=== PATIENT | female | born 1945 | race Caucasian/White ===

== ENCOUNTER → 2016-11-14 | Outpatient (CLI) | payer MEDICARE, OTHER ==
[2016-11-14 13:39] LABS: HEMOGLOBIN 12.4 gm/dl (12.3-15.3); RED BLOOD COUNT 3.97 M/UL (4.00-5.10); WHITE BLOOD COUNT 5.2 K/UL (4.5-11.0)
== END ==
LOC: LAB 10:05
PROVIDERS: Dermatology
DX: D64.9 Anemia, unspecified (principal); F41.1 Generalized anxiety disorder; R53.82 Chronic fatigue, unspecified; L50.9 Urticaria, unspecified
CPT/HCPCS: 36415; 80053; 82085; 82550; 85027; 86039; 86140; 86225; 86235; 86334; 86431

== ENCOUNTER → 2021-12-11 | Outpatient (CLI) | payer MEDICARE, OTHER ==
[~2021-12-11] MED LIST: ADULT LOW DOSE81 MG PO; ELAVIL 10 MG TA10 MG PO; LEXAPRO TAB 1010 MG PO; NAMENDA10 MG PO; NORVASC 5 MG TAB5 MG PO; PRAVACHOL40 MG PO
== END ==
LOC: KOH-I 12-06 15:00
DX: R32 Unspecified urinary incontinence (principal); N32.89 Other specified disorders of bladder; R39.198 Other difficulties with micturition
CPT/HCPCS: 76857